=== PATIENT | male | born 1960 | race Caucasian/White ===

== ENCOUNTER 2023-02-06 09:32 | Emergency (ER) | payer MEDICARE, OTHER ==
[~2023-02-06] VITALS: Ht 185.4 cm; Wt 158.8 kg
[2023-02-06] MEDS ORDERED: OMEPRAZOLE DR 40 MG (10:30)
[2023-02-06] MEDS ORDERED: RAMELTEON8 MG PO (10:31)
[2023-02-06] MEDS ORDERED: METO100ER PO (10:31)
[2023-02-06] MEDS ORDERED: AMLODIPINE BESY10 MG PO (10:31)
[2023-02-06] MEDS ORDERED: LATANOPROST2.5 M3 (10:31)
[2023-02-06] MEDS ORDERED: VRAYLAR1.5 MG PO (10:31)
[2023-02-06] MEDS ORDERED: CYMBALTA30 M2 PO (10:31)
[2023-02-06] MEDS ORDERED: ATORVASTATIN CA20 MG PO (10:32)
[2023-02-06] MEDS ORDERED: [UNRECOGNIZED DRUG - CODE] PO (10:32)
[2023-02-06] MEDS ORDERED: OXCARBAZEPINE 600 MG (10:32)
[2023-02-06] MEDS ORDERED: REYVOW (10:33)
[2023-02-06] MEDS ORDERED: FERSU300 (10:33)
[2023-02-06] MEDS ORDERED: LOSARTAN-HCTZ1 EAC5 PO (10:33)
[2023-02-06] MEDS ORDERED: NYSTOP15 GM TOP (10:34)
[2023-02-06] MEDS ORDERED: IBUP600 PO (11:41)
[2023-02-06 12:18] VITALS: BP 126/68
== END 2023-02-06 12:19 | disposition home or self-care (01) ==
LOC: ER 09:32
DX: M16.0 Bilateral primary osteoarthritis of hip (principal); I10 Essential (primary) hypertension; Z88.0 Allergy status to penicillin; Z79.899 Other long term (current) drug therapy
CPT/HCPCS: 73502; 99283-25

== ENCOUNTER 2024-03-26 10:16 | Emergency (ER) | payer MEDICARE, OTHER ==
[~2024-03-26] VITALS: Ht 182.9 cm; Wt 145.2 kg
[~2024-03-26 10:16] MED LIST: AMLODIPINE BESY10 MG PO; ATORVASTATIN CA20 MG PO; CYMBALTA30 M2 PO; FERSU300; IBUP600 PO; LATANOPROST2.5 M3; LOSARTAN-HCTZ1 EAC5 PO; METO100ER PO; NYSTOP15 GM TOP; OMEPRAZOLE DR 40 MG; OXCARBAZEPINE 600 MG; RAMELTEON8 MG PO; REYVOW; VRAYLAR1.5 MG PO; [UNRECOGNIZED DRUG - CODE] PO
[2024-03-26 10:50] LABS: BASOPHILS ABSOLUTE AUTO 0.04 K/mm3 (0.00-0.23); BASOPHILS PERCENT AUTO 0 % (0-2); EOSINOPHILS ABSOLUTE AUTO 0.17 K/mm3 (0.00-0.68); EOSINOPHILS PERCENT AUTO 2 % (0-6); Hematocrit 27.6 % (37.0-53.0); Hemoglobin 9.2 g/dL (13.5-17.5); IMMATURE GRAN ABSOLUTE AUTO 0.24 K/mm3 (0.00-0.10); IMMATURE GRAN PERCENT AUTO 2 % (0-1); LYMPHOCYTES ABSOLUTE AUTO 2.05 K/mm3 (0.84-5.20); LYMPHOCYTES PERCENT AUTO 18 % (21-46); MONOCYTES ABSOLUTE AUTO 1.05 K/mm3 (0.16-1.47); MONOCYTES PERCENT AUTO 9 % (4-13); Mean Corpuscular HGB 30.4 pg (26.0-34.0); Mean Corpuscular HGB Conc 33.3 g/dL (31.5-36.5); Mean Corpuscular Volume 91 fL (80-100); Mean Platelet Volume 8.2 fL (9.1-12.4); NEUTROPHILS PERCENT AUTO 70 % (41-73); Platelet Count 385 K/mm3 (150-400); RDW Standard Deviation 50.1 fL (35.1-46.3); Red Blood Cell Count 3.03 M/mm3 (4.30-5.90); White Blood Cell Count 11.65 K/mm3 (4.00-11.30)
[2024-03-26 11:07] LABS: Albumin, Blood 2.7 g/dL (3.4-5.0); Albumin/Globulin Ratio 0.8 (0.8-1.8); Bilirubin, Total 0.4 mg/dL (0.1-1.0); Bun/Creatinine Ratio 25.7 (12.0-20.0); Calcium, Blood 8.9 mg/dL (8.5-10.1); Creatinine, Blood 1.01 mg/dL (0.60-1.20); Globulin, Blood 3.4 g/dL (2.2-4.0); Potassium, Blood 4.4 mmol/L (3.5-5.5); Total Protein, Blood 6.1 g/dL (6.4-8.2)
[2024-03-26] MEDS ORDERED: Lasix20 MG PO (12:01)
[2024-03-26 12:40] VITALS: BP 181/86
== END 2024-03-26 12:40 | disposition home or self-care (01) ==
LOC: ER 10:16
PROVIDERS: Emergency Medicine
DX: R60.0 Localized edema (principal); I10 Essential (primary) hypertension; Z96.642 Presence of left artificial hip joint; Z88.0 Allergy status to penicillin; Z79.899 Other long term (current) drug therapy
CPT/HCPCS: 80053; 85025; 93005; 93010; 93971; 99284-25